=== PATIENT | male | born 1990 | race Caucasian/White ===

== ENCOUNTER 2022-07-05 01:05 | Inpatient (IN) | payer MEDICAID ==
[~2022-07-05] VITALS: Ht 182.9 cm; Wt 82.6 kg
[2022-07-05] MEDS ORDERED: HALOPERIDOL 5 MG TABLET PO PRN (01:30)
[2022-07-05 02:26] VITALS: BP 98/71
[2022-07-05] MEDS ORDERED: INFLUENZA VIRUS VACCINE QVS 2022-23 (6MO+)/PF 60 MCG/0.5 ML SYRINGE IM. ONE (04:30)
[2022-07-05] MEDS ORDERED: PETROLATUM,WHITE 28 GM JELLY TP PRN (06:30)
[2022-07-05] MEDS ORDERED: CloNIDine HCL 0.1 MG TABLET PO PRN (06:30)
[2022-07-05] MEDS ORDERED: MAGNESIUM HYDROXIDE SUSPENSION 30 ML UDCUP PO PRN (06:30)
[2022-07-05] MEDS ORDERED: NICOTINE 14 MG/24 HOUR PATCH TD PRN (06:30)
[2022-07-05] MEDS ORDERED: ONDANSETRON HCL 4 MG TABLET PO PRN (06:30)
[2022-07-05] MEDS ORDERED: ALBUTEROL SULFATE HFA 90 MCG/PUFF 8 GM INHALER IH PRN (06:30)
[2022-07-05] MEDS ORDERED: GuaiFENesin/D-METHORPHAN [SUGAR-FREE] 200-20MG/10 ML SYRUP UDCUP PO PRN (06:30)
[2022-07-05] MEDS ORDERED: MAG HYDROX/AL HYDROX/SIMETH ES 30 ML SUSPENSION UDCUP PO PRN (06:30)
[2022-07-05] MEDS ORDERED: ACETAMINOPHEN 325 MG TABLET PO PRN (06:30)
[2022-07-05] MEDS ORDERED: IBUPROFEN 400 MG TABLET PO PRN (06:30)
[2022-07-05] MEDS ORDERED: DOCUSATE SODIUM 100 MG CAPSULE PO PRN (06:30)
[2022-07-05] MEDS ORDERED: LOPERAMIDE HCL 2 MG CAPSULE PO PRN (06:30)
[2022-07-05 10:45] VITALS: BP 105/75
[2022-07-05] MEDS: QUEtiapine FUMARATE 25 MG TABLET PO SCH (11:31)
[2022-07-05 20:19] VITALS: BP 104/68
[2022-07-05] MEDS: QUEtiapine FUMARATE 100 MG TABLET PO SCH (20:28)
[2022-07-06 08:44] VITALS: BP 120/75
[2022-07-06] MEDS: QUEtiapine FUMARATE 25 MG TABLET PO SCH (09:11)
[2022-07-06 20:17] VITALS: BP 107/66
[2022-07-06] MEDS: QUEtiapine FUMARATE 100 MG TABLET PO SCH (20:50)
[2022-07-07 08:32] VITALS: BP 118/70
[2022-07-07] MEDS: QUEtiapine FUMARATE 25 MG TABLET PO SCH (09:10)
[2022-07-07] MEDS: QUEtiapine FUMARATE 100 MG TABLET PO SCH (20:35)
[2022-07-07 20:58] VITALS: BP 111/75
[2022-07-08 08:04] LABS: BASOPHILS % (AUTO) 0.8 % (0.0-2.0); EOSINOPHILS % (AUTO) 4.2 % (1.0-6.0); HEMATOCRIT 41.9 % (41-53); HEMOGLOBIN 14.3 g/dL (13.5-17.5); LYMPHOCYTES # (AUTO) 1.5 K/uL (1.0-4.8); LYMPHOCYTES % (AUTO) 29.4 % (22.0-44.0); MEAN CORPUSCULAR HEMOGLOBIN 28.8 pg (26.0-34.0); MEAN CORPUSCULAR HGB CONC 34.1 G/dL (31.0-37.0); MEAN CORPUSCULAR VOLUME 84 fL (80-100); MONOCYTES # (AUTO) 0.4 K/uL (0.1-1.0); MONOCYTES % (AUTO) 8.5 % (2.0-9.0); NEUTROPHILS # (AUTO) 2.9 K/uL (1.8-7.7); NEUTROPHILS % (AUTO) 57.1 % (40.0-70.0); PLATELET COUNT (AUTO) 195 K/uL (150-450); RED BLOOD CELL COUNT(AUTO) 4.97 MIL/uL (4.50-5.90); RED CELL DISTRIBUTION WIDTH 14.5 % (11.5-14.5)
[2022-07-08 08:16] LABS: APPEARANCE,URINE CLEAR (CLEAR); BILIRUBIN,URINE NEGATIVE (NEGATIVE); GLUCOSE, URINE (UA) NEGATIVE (NEGATIVE); KETONES,URINE NEGATIVE (NEGATIVE); LEUKOCYTE ESTERASE ,URINE NEGATIVE (NEGATIVE); NITRATE,URINE NEGATIVE (NEGATIVE); OCCULT BLOOD,URINE NEGATIVE (NEGATIVE); PH,URINE 6.5 (5.0-8.0); PROTEIN,URINE NEGATIVE (NEGATIVE); SPECIFIC GRAVITIY, URINE 1.002 (1.003-1.030); UROBILINOGEN,URINE <=1.0 mg/dL (<=1.0)
[2022-07-08 08:23] LABS: AMPHET/METH SCREEN,URINE NEGATIVE (NEGATIVE); BARBITURATE SCREEN, URINE NEGATIVE (NEGATIVE); BENZODIAZEPINES SCREEN,URINE NEGATIVE (NEGATIVE); CANNABINOID SCREEN,URINE NEGATIVE (NEGATIVE); COCAINE SCREEN,URINE NEGATIVE (NEGATIVE); METHADONE SCREEN, URINE NEGATIVE (NEGATIVE); OPIATE SCREEN,URINE NEGATIVE (NEGATIVE); PHENCYCLIDINE SCREEN,URINE NEGATIVE (NEGATIVE)
[2022-07-08 08:34] LABS: ALANINE AMINOTRANSFERASE 15 U/L (12-78); ALBUMIN 3.6 g/dL (3.4-5.0); ALKALINE PHOSPHATASE 64 U/L (46-116); ANION GAP 7 mmol/L (8-16); ASPARTATE AMINOTRANSFERASE 10 U/L (15-37); BILIRUBIN,TOTAL 0.2 mg/dL (0.1-1.0); CALCIUM, TOTAL 8.7 mg/dL (8.8-10.5); CARBON DIOXIDE 28 mmol/L (22-29); CHLORIDE 106 mmol/L (98-107); CHOL/HDL RATIO 4.9 (4.2-7.3); CHOLESTEROL 190 mg/dL (131-200); CREATININE 0.75 mg/dL (0.60-1.30); FREE T4 (FREE THYROXINE) 0.97 ng/dL (0.76-1.46); GLOMERULAR FILTR. RATE CALC > 60 mL/min (>60); GLUCOSE,RANDOM 87 mg/dL (70-110); HDL CHOLESTEROL 39 mg/dL (40-60); HEMOGLOBIN A1C 5.4 % (3.8-5.6); LDL CHOL (CALC.) 127 mg/dL (0-130); POTASSIUM 4.1 mmol/L (3.5-5.1); SODIUM SERUM 141 mmol/L (136-145); THYROID STIMULATING HORMONE 0.69 uIU/mL (0.36-3.74); TRIGLYCERIDES 119 mg/dL (15-150); UREA NITROGEN, BLOOD 14 mg/dL (7-18)
[2022-07-08] MEDS: QUEtiapine FUMARATE 25 MG TABLET PO SCH (08:41)
[2022-07-08 08:44] VITALS: BP 106/91
[2022-07-08 20:22] VITALS: BP 105/62
[2022-07-08] MEDS: QUEtiapine FUMARATE 100 MG TABLET PO SCH (20:33)
[2022-07-09 08:32] VITALS: BP 124/70
[2022-07-09] MEDS: QUEtiapine FUMARATE 25 MG TABLET PO SCH (09:12)
[2022-07-09] MEDS: QUEtiapine FUMARATE 100 MG TABLET PO SCH (20:13)
[2022-07-09 20:26] VITALS: BP 110/61
[2022-07-09 20:35] LABS: GLUCOMETER DEV NAME(LOC) POC.BV
[2022-07-09] MEDS: ZOLPIDEM TARTRATE 10 MG TABLET PO PRN (21:25)
[2022-07-10] MEDS: QUEtiapine FUMARATE 25 MG TABLET PO SCH (08:25)
[2022-07-10 08:50] VITALS: BP 112/69
[2022-07-10 20:30] VITALS: BP 130/70
[2022-07-10] MEDS: QUEtiapine FUMARATE 100 MG TABLET PO SCH (20:55)
[2022-07-10] MEDS: ZOLPIDEM TARTRATE 10 MG TABLET PO PRN (21:37)
[2022-07-11 08:38] VITALS: BP 109/70
[2022-07-11] MEDS: QUEtiapine FUMARATE 25 MG TABLET PO SCH (08:41)
[2022-07-11] MEDS: QUEtiapine FUMARATE 100 MG TABLET PO SCH (20:22)
[2022-07-11 20:30] VITALS: BP 107/65
[2022-07-12 08:31] VITALS: BP 106/71
[2022-07-12] MEDS: QUEtiapine FUMARATE 25 MG TABLET PO SCH (08:57)
[2022-07-12] MEDS: LORazepam 2 MG TABLET PO PRN (12:39)
[2022-07-12] MEDS: QUEtiapine FUMARATE 100 MG TABLET PO SCH (20:29)
[2022-07-12 20:42] VITALS: BP 110/74
[2022-07-13 07:41] LABS: APPEARANCE,URINE CLEAR (CLEAR); BILIRUBIN,URINE NEGATIVE (NEGATIVE); GLUCOSE, URINE (UA) NEGATIVE (NEGATIVE); KETONES,URINE NEGATIVE (NEGATIVE); LEUKOCYTE ESTERASE ,URINE NEGATIVE (NEGATIVE); NITRATE,URINE NEGATIVE (NEGATIVE); OCCULT BLOOD,URINE NEGATIVE (NEGATIVE); PROTEIN,URINE NEGATIVE (NEGATIVE); SPECIFIC GRAVITIY, URINE 1.011 (1.003-1.030); UROBILINOGEN,URINE <=1.0 mg/dL (<=1.0)
[2022-07-13 08:21] LABS: BACTERIA,URINE None Seen /HPF (None Seen); RBC,URINE None Seen /HPF (0-2); SQUAMOUS EPITHELIAL CELL,UR None Seen /LPF (None Seen); WBC,URINE None Seen /HPF (0-5)
[2022-07-13 08:56] VITALS: BP 102/60
[2022-07-13] MEDS: LORazepam 2 MG TABLET PO PRN (09:30)
[2022-07-13] MEDS: QUEtiapine FUMARATE 25 MG TABLET PO SCH (09:30)
[2022-07-13] MEDS ORDERED: QUET50TA PO ×2 (13:54)
[2022-07-13] MEDS ORDERED: QUET25TA36 PO (15:47)
[2022-07-13] MEDS ORDERED: QUET100T34 PO (15:47)
== END 2022-07-13 14:45 | disposition home or self-care (01) | DRG 750 ==
LOC: B2S 01:10
PROVIDERS: ADMIT Psychiatry & Neurology Child & Adolescent Psychiatry; ATTEND Psychiatry & Neurology Child & Adolescent Psychiatry
DX: F25.1 Schizoaffective disorder, depressive type (principal); F10.10 Alcohol abuse, uncomplicated; G47.00 Insomnia, unspecified; F12.10 Cannabis abuse, uncomplicated; Z20.822 Contact with and (suspected) exposure to COVID-19; F32.A Depression, unspecified; Z79.899 Other long term (current) drug therapy
CPT/HCPCS: 80053; 80061; 80164; 80307; 81001; 81003; 83036; 84439; 84443; 85025

== ENCOUNTER 2022-11-15 20:44 | Emergency (ER) | payer MEDICAID ==
[~2022-11-15] VITALS: Ht 185.4 cm; Wt 110.0 kg
[~2022-11-15 20:44] MED LIST: QUET100T34 PO; QUET25TA36 PO; QUET50TA PO
[2022-11-16 00:14] VITALS: TEMP 97.8
[2022-11-16 00:28] LABS: BASOPHILS % (AUTO) 1.5 % (0.0-2.0); EOSINOPHILS % (AUTO) 3.7 % (1.0-6.0); HEMATOCRIT 42.2 % (41-53); HEMOGLOBIN 14.4 g/dL (13.5-17.5); LYMPHOCYTES # (AUTO) 1.5 K/uL (1.0-4.8); LYMPHOCYTES % (AUTO) 24.8 % (22.0-44.0); MEAN CORPUSCULAR HEMOGLOBIN 28.7 pg (26.0-34.0); MEAN CORPUSCULAR HGB CONC 34.1 G/dL (31.0-37.0); MEAN CORPUSCULAR VOLUME 84 fL (80-100); MONOCYTES # (AUTO) 0.6 K/uL (0.1-1.0); MONOCYTES % (AUTO) 10.5 % (2.0-9.0); NEUTROPHILS # (AUTO) 3.7 K/uL (1.8-7.7); NEUTROPHILS % (AUTO) 59.5 % (40.0-70.0); PLATELET COUNT (AUTO) 272 K/uL (150-450); RED CELL DISTRIBUTION WIDTH 13.5 % (11.5-14.5)
[2022-11-16 00:30] LABS: AMPHET/METH SCREEN,URINE NEGATIVE (NEGATIVE); BARBITURATE SCREEN, URINE NEGATIVE (NEGATIVE); BENZODIAZEPINES SCREEN,URINE NEGATIVE (NEGATIVE); CANNABINOID SCREEN,URINE POSITIVE (NEGATIVE); COCAINE SCREEN,URINE NEGATIVE (NEGATIVE); METHADONE SCREEN, URINE NEGATIVE (NEGATIVE); OPIATE SCREEN,URINE NEGATIVE (NEGATIVE); PHENCYCLIDINE SCREEN,URINE NEGATIVE (NEGATIVE)
[2022-11-16 00:31] LABS: ANION GAP 8 mmol/L (8-16); CALCIUM, TOTAL 8.7 mg/dL (8.8-10.5); CARBON DIOXIDE 27 mmol/L (22-29); CHLORIDE 105 mmol/L (98-107); CREATININE 0.88 mg/dL (0.60-1.30); GLOMERULAR FILTR. RATE CALC > 60 mL/min (>60); GLUCOSE,RANDOM 114 mg/dL (70-110); POTASSIUM 3.6 mmol/L (3.5-5.1); SODIUM SERUM 140 mmol/L (136-145)
[2022-11-16 00:37] LABS: ALANINE AMINOTRANSFERASE 37 U/L (12-78); ALBUMIN 3.6 g/dL (3.4-5.0); ALKALINE PHOSPHATASE 81 U/L (46-116); ASPARTATE AMINOTRANSFERASE 20 U/L (15-37); BILIRUBIN,TOTAL 0.2 mg/dL (0.1-1.0); TOTAL PROTEIN, SERUM 7.5 g/dL (6.4-8.2)
[2022-11-16] MEDS ORDERED: QUEtiapine FUMARATE 25 MG TABLET PO ONE (01:00)
[2022-11-16 06:57] VITALS: BP 125/74; PULSE 82; RESP 17
== END 2022-11-16 07:00 | disposition home or self-care (01) ==
LOC: EMS 20:44
DX: F32.A Depression, unspecified (principal); F41.9 Anxiety disorder, unspecified; F17.210 Nicotine dependence, cigarettes, uncomplicated
CPT/HCPCS: 99285; 80053; 85025; 36415; 80307 ×2; G0480